=== PATIENT | female | born 1995 | race Caucasian/White ===

== ENCOUNTER 2016-08-29 00:05 | Emergency (ER) | payer MEDICAID ==
[~2016-08-29] VITALS: Ht 160 cm; Wt 65.8 kg
[2016-08-29 00:05] VITALS: BP 127/92; PULSE 106; RESP 20; TEMP 98.5; O2SAT 99
--- NOTE | 2016-08-29 00:05 | NUR ---
Patient to ER bed 2 to gown for evaluation. Side rails up. Report given to Marbella HALL.
--- NOTE | 2016-08-29 00:10 | NUR ---
Patient alert and oriented x 4. Came in the ER accompanied by a friend with a complaint of severe headache that she feels that her head is going to pop. Patient stated that she took 2 1/2 pills of ecstasy. No acute distress or SOB noted. Denies n/v/d. Pain scale 10/10. No other complaints stated.
[2016-08-29] MEDS ORDERED: KETOROLAC TROMETHAMINE 30 MG VIAL IVP ONE (00:30)
[2016-08-29] MEDS ORDERED: NACL 0.9% 1,000 ML IV ONE (00:30)
--- NOTE | 2016-08-29 00:52 | NUR ---
ER Dr. Harrison at bedside examining patient.
[2016-08-29 01:15] LABS: BILIRUBIN,URINE NEGATIVE (NEGATIVE); CLARITY/URINE HAZY (CLEAR); COLOR,URINE YELLOW (YELLOW); GLUCOSE,URINE NEGATIVE (NEGATIVE); KETONES,URINE NEGATIVE (NEGATIVE); LEUKOCYTE ESTERASE ,URINE 1+ (NEGATIVE); NITRITE, URINE NEGATIVE (NEGATIVE); PROTEIN URINE NEGATIVE (NEGATIVE); UROBILINOGEN,URINE 0.2 (0.2-1.0)
[2016-08-29 01:24] LABS: BLOOD, URINE TRACE (NEGATIVE)
[2016-08-29 01:28] LABS: BACTERIA,URINE MODERATE /HPF (None Seen); MUCUS,URINE None Seen /LPF (None Seen)
[2016-08-29 02:18] VITALS: BP 127/92; PULSE 106; RESP 20; TEMP 98.5; O2SAT 99
--- NOTE | 2016-08-29 02:18 | NUR ---
Patient given written and verbal discharge instructions and verbalizes understanding. ER MD discussed with patient the results and treatment provided. Patient in stable condition. No acute distress or SOB noted upon discharge. ID arm band removed. IV catheter removed intact and dressing applied, no active bleeding. Rx of Cipro given. Patient educated on pain management and to follow up with PMD. Pain Scale. Opportunity for questions provided and answered.
== END 2016-08-29 02:18 | disposition home or self-care (01) ==
LOC: SED 00:05
DX: R51 Headache (principal); N39.0 Urinary tract infection, site not specified; F17.200 Nicotine dependence, unspecified, uncomplicated
CPT/HCPCS: 81000; 87086; 96361; 96374; 99284; J1885; J7030